=== PATIENT | female | born 1995 | race Caucasian/White ===

== ENCOUNTER 2017-12-11 01:59 | Emergency (ER) | payer OTHER ==
[~2017-12-11] VITALS: Ht 160 cm; Wt 63.5 kg
[2017-12-11] MEDS ORDERED: NOHOMEMEDICATIONS (02:09)
[2017-12-11 03:03] VITALS: BP 122/67
== END 2017-12-11 03:06 | disposition left against medical advice (07) ==
LOC: M.ERS 01:59
DX: J02.9 Acute pharyngitis, unspecified (principal); H92.03 Otalgia, bilateral